=== PATIENT | male | born 1955 | race African-American/Black ===

== ENCOUNTER 2018-08-14 19:14 | Emergency (ER) | payer MEDICAID ==
[~2018-08-14] VITALS: Ht 180.3 cm; Wt 68.0 kg
[2018-08-14] MEDS ORDERED: IBUPROFEN 600MG TABLET PO ONE (21:00)
[2018-08-14 21:25] VITALS: BP 104/66
== END 2018-08-14 21:25 | disposition home or self-care (01) ==
LOC: ER 19:14
DX: S82.401A Unspecified fracture of shaft of right fibula, initial encounter for closed fracture (principal); S70.01XA Contusion of right hip, initial encounter; X58.XXXA Exposure to other specified factors, initial encounter; Y93.9 Activity, unspecified; Y92.9 Unspecified place or not applicable
CPT/HCPCS: 29515; 73502; 73610; 99283